=== PATIENT | male | born 1950 | race Caucasian/White ===

== ENCOUNTER 2017-06-15 10:36 | Emergency (ER) | payer MEDICARE ==
[2017-06-15] MEDS ORDERED: NORMAL SALINE 1,000 ML IV ONE (11:47)
--- NOTE | 2017-06-15 11:56 | ERNOTE ---
Abdominal HPI - Narrative Date of Service: 06/15/17 - General Chief Complaint: Abdominal Pain Time Seen by Provider: 06/15/17 11:24 Source: patient - Immun/Allergies/Home Medications Immunizatons: IMMUNIZATION HX Immunizations Up to Date No History of Influenza Vaccine No Hx Pneumococcal Vaccination No Allergies/Adverse Reactions: Allergies Penicillins Allergy (Unverified 10/23/16 17:06) Home Medications: HOME MEDICATIONS Aspirin [Aspirin Enteric Coated] 325 mg PO DAILY 06/15/17 [Last Taken Unknown] - History of Present Illness Narrative: 66-year-old male presents to the emergency room for what he describes as pancreatic pain. Patient states that he has pancreatitis 7 different occasions and this feels very similar. Patient has left upper quadrant pain, states that he had nausea this morning after eating breakfast,. Patient states that this pain is fairly intense. Date (Duration): 06/15/17 Quality: aching Activities at Onset: none Modifying Factors - (Worsens): Present: eating Associated Symptoms: Present: nausea, loss of appetite Prior Abdominal Problems: Present: similar symptoms Review of Systems - Review of Systems Constitutional: Present: no symptoms reported EYE: Present: no symptoms reported ENT: Present: no symptoms reported Respiratory: Present: no symptoms reported Cardiology: Present: no symptoms reported Gastrointestinal/Abdominal: Present: See HPI, nausea, abdominal pain Genitourinary: Present: See HPI Musculoskeletal: Present: no symptoms reported Skin: Present: no symptoms reported Neurological: Present: no symptoms reported Endocrine: Present: no symptoms reported Hematologic/Lymphatic: Present: no symptoms reported Psych: Present: no symptoms reported All Other Systems: All systems neg except as marked - Patient's Past Medical History Patient History - Medical: Other Patient History - Cardiac/Respiratory: No pertinent hx Patient History - Cancer: No Hx of Cancer Patient History - Surgical Procedures: Colonoscopy Patient History - Other: None - Social History Living Situations: home Abuse History: No History of abuse Psych History: No pertinent hx Smoking Status: Never smoker Alcohol Use: none Drug Use: none - Immunizations Immunizations Up to Date: No Hx Pneumococcal Vaccination: No History of Influenza Vaccine: No Physical Exam - Physical Exam General Appearance: Present: wd/wn, alert, mild distress Head Exam: Present: normal inspection, no evidence of injury Eye Exam: Normal inspection: bilateral, PERRL: bilateral, EOMI: bilateral Ears, Nose, Throat: Present: normal ENT inspection, normal pharynx Neck: Present: normal inspection, nontender Respiratory: Present: no respiratory distress, normal breath sounds, no accessory muscle use, chest nontender, lungs clear Cardiovascular/Chest: Present: regular rate, rhythm, no murmur, normal peripheral pulses Gastrointestinal/Abdominal: Present: normal bowel sounds, nondistended, tenderness, distended ED Progress - Results and Orders Patient's Lab Results:: I have reviewed the patient's lab results. - Vital Signs Vital Signs: Vital Signs 06/15/17 06/15/17 11:28 11:35 Temperature 37.0 C 37.0 C Pulse Rate 89 89 Respiratory 16 16 Rate Blood Pressure 145/89 145/89 O2 Sat by Pulse 97 97 Oximetry - X-Ray X-Ray #1 X-Ray: abdomen Interpretation: Reviewed by me X-ray Comments: Reason for Exam: abd pain Radiological Report : [place] [address] NAME: FREYCONNIE Khoa : 1950 MR #: [id number] CC: Ubaldo Ponce [employer] LOC: [facility] DATE: X-RAY REPORT [id number] RAD/Abdomen Flat W/ Upright * Exam Date: 06/15/2017 11:33 Ordering Physician: Ubaldo Ponce HISTORY: abd pain Additional history from technologist: Mid epigastric abdominal pain. TECHNIQUE: AP upright and supine views of the abdomen were obtained, total of 4 images. COMPARISONS: 06/01/2011 FINDINGS: Abdomen Flat W/ Upright *: No subdiaphragmatic free air. Multiple loops of dilated small bowel seen within the midabdomen, with differential air-fluid levels. Stool and bowel gas also seen within the proximal:. Multiple pelvic calcifications likely phleboliths. No definite signs of nephrolithiasis or ureterolithiasis. Osseous structures are intact. Degenerative changes of the thoracolumbar spine and bilateral hips noted. IMPRESSION: 1. Abnormal bowel gas pattern suggestive of potential early or partial small bowel obstruction. 2. Additional comments are as above. Electronically signed by Francheska Cassidy M.D.. Francheska Cassidy MD Dict: 06/15/17 1252 Typed: 06/15/17 1252/ 06/15/17 1300 06/15/17 1303 - CT/Ultrasound CT/Ultrasound Narrative: HISTORY/INDICATION: abd pain Additional history from technologist: Left upper quadrant abdominal pain. Elevated lipase. Previous history of pancreatitis. TECHNIQUE: Contrast enhanced CT images of the abdomen during portal venous phase obtained. Excretory phase images of the abdomen and pelvis were also obtained. Coronal reconstructions were also submitted. Oral contrast material was given. COMPARISON: December 11, 2011 CT Abdomen/Pelvis W/C * ABDOMEN: Lungs: Mild dependent atelectasis present. Calcified granuloma the right lower lobe noted. Uterus portions of the heart demonstrates no definite signs of cardiac enlargement or significant pericardial effusion. Liver: Enlarged, hypodense appearance suggestive of fatty infiltration of the liver. There is a tiny hypodensity in the left hepatic lobe, stable most likely a benign cyst or biliary hamartoma. Gallbladder: Gallbladder appears to be grossly unremarkable although there is some enhancement of the liver parenchyma adjacent to the gallbladder itself. Pancreas: There is diffuse enlargement, and edema of the pancreatic parenchyma with adjacent inflammatory stranding and small amount of confluent edema/fluid in the peripancreatic space/ retroperitoneum, extending along the bilateral anterior pararenal fascia , without definable focal fluid collection or signs of retroperitoneal/peripancreatic gas. The parenchyma demonstrates no definite signs of a focal mass or area of nonenhancement to suggest pancreatic necrosis. There is normal opacification of the splenic vein without thrombosis. Spleen: Calcified splenic granulomas present. Adrenal glands: Unremarkable without focal finding. Kidneys: Normal appearance without focal mass or hydronephrosis. Focal scarring of the lower pole left kidney, stable. Aorta: Mild calcified atherosclerotic plaques noted. Diameter of the infrarenal segment at the level of the inferior mesenteric artery origin is 1.8 cm. Retroperitoneum: No pathologic size lymphadenopathy or mass within the retroperitoneum is seen. Stomach: Partially opacified stomach grossly unremarkable. Small bowel: There is likely secondary duodenal bowel wall thickening , related to underlying pancreatitis. Small bowel loops are otherwise unremarkable without definite signs of intestinal obstruction. Colon: Diverticular outpouchings of the descending and sigmoid colonic segments noted without definite signs of bowel wall thickening and pericolonic inflammatory changes suggest colitis or diverticulitis. Mild stool retention noted within the colonic segments. No evidence for colonic obstruction. Normal caliber appendix seen. Appendix best seen on series 4 image 68-77. Abdominal wall: Fat-containing umbilical and bilateral inguinal hernias noted. No evidence for intraperitoneal free air. PELVIS: Contrast-filled portions of the urinary bladder demonstrates no focal finding. Mild prostate enlargement suggested. No definite signs of pelvic lymphadenopathy or masses are noted. No evidence of free pelvic fluid noted. Bones: Osseous structures are intact without evidence for focal destructive changes. Degenerative changes of the spine noted. IMPRESSION: 1. CT findings compatible with acute pancreatitis as discussed above, without definite signs of complication such as abscess or necrosis. 2. Enhancement of the liver parenchyma around the gallbladder. This could be secondary due to gallbladder pathology. Consider gallbladder ultrasound as needed. 3. Colonic diverticulosis and stool retention noted. No definite signs of acute diverticulitis. 4. Hepatic steatosis. 5. Additional comments and details are as above. Electronically signed by Francheska Cassidy M.D.. Francheska Cassidy MD - Progress/Reassessment Chief Complaint: Abdominal Pain Progress:: Improved Plan - Plan Plan: The patient does not want to be admitted to the hospital for pain control or nausea. Patient states he would like to go home and he'll return if symptoms return. Patient states that he has had pancreatitis 7 times and usually does with just fine at home. Patient understands that he needs to return to the emergency room if he starts running a fever or pain is not able to be controlled her nausea is noted to be controlled. Patient offered a prescription for pain medication and nausea medication and patient refused at this time. Departure - Departure Clinical Impression: Pancreatitis Qualifiers: Chronicity: acute Pancreatitis type: unspecified pancreatitis type Acute pancreatitis complication: unspecified Qualified Code(s): K85.90 - Acute pancreatitis without necrosis or infection, unspecified Disposition: Home Follow Up Needed Condition: Stable Instructions: Low-Fat Diet for Pancreatitis or Gallbladder Conditions, Acute Pancreatitis, [id number] Additional Instructions: Continue any previous home medications. Please return to the emergency room if he develops a fever, nausea or pain increases. Follow up with his primary care in the next 2-3 days. Referrals: Lowell Rahman MD [Primary Care Provider] -
[2017-06-15 12:13] LABS: Hematocrit 49.3 % (42.0-52.0); Hemoglobin 16.8 gm/dL (13.5-18.0); Mean Cell Volume 92.3 fl (78-100); Mean Corpuscular Hemoglobin 31.5 pg (27-31); Mean Corpuscular Hgb Conc 34.1 g/dl (32-36); Mean Platelet Volume 10.2 fl (6.0-9.5); Neutrophil # 8.2 K/mm3 (1.3-6.0); Platelet Count 202 K/mm3 (150-450); Red Blood Count 5.34 M/mm3 (4.7-6.0); Red Cell Distribution Width 12.6 % (11.5-14.0); White Blood Count 10.8 K/mm3 (4.0-10.5)
[2017-06-15 12:20] LABS: Albumin * 3.9 gm/dl (3.4-5.0); Anion Gap 14.8 mmol/L (6.8-13.8); BUN/Creatinine Ratio 19.6 (9.0-21.6); Bilirubin, Total 0.5 mg/dL (0.0-1.1); Ca. Corrected For Albumin 9.3 mg/dL (8.4-10.2); Calcium * 9.5 mg/dL (7.9-10.9); Carbon Dioxide 24.2 mmol/L (24-32.6); Total Protein 8.1 gm/dL (6.2-8.2)
[2017-06-15 12:24] LABS: Troponin I 0.069 ng/ml (0.00-0.10)
[2017-06-15] MEDS ORDERED: DIATRIZOATE MEGLUMINE, SODIUM 30 ML BTL PO ONE (13:35)
[2017-06-15] MEDS ORDERED: DIATRIZOATE MEGLUMINE, SODIUM 30 ML BTL ONE (13:37)
[2017-06-15 20:30] VITALS: BP 144/83
== END 2017-06-15 16:20 | disposition home or self-care (01) ==
LOC: ER 10:36
DX: K85.90 Acute pancreatitis without necrosis or infection, unspecified (principal)

== ENCOUNTER 2020-08-16 16:41 | Inpatient (IN) ==
[2020-08-16] MEDS ORDERED: NORMAL SALINE 1,000 ML IV ONE (17:13)
[2020-08-16] MEDS ORDERED: MORPHINE SULFATE 4 MG/ML SYRG IV ONE ×3 (17:14→18:43)
[2020-08-16] MEDS ORDERED: ONDANSETRON HCL/PF 2 MG/ML VIAL IV ONE ×2 (17:14→18:42)
[2020-08-16] MEDS ORDERED: diphenhydrAMINE HCL 50 MG/ML VIAL IV ONE (17:14)
--- NOTE | 2020-08-16 17:30 | ERNOTE ---
<Tremaine Rich - Last Filed: 08/16/20 19:48> Abdominal HPI - Narrative Date of Service: 08/16/20 - General Chief Complaint: Abdominal Pain Time Seen by Provider: 08/16/20 16:55 Source: patient Exam Limitations: no limitations - Immun/Allergies/Home Medications Immunizatons: IMMUNIZATION HX Immunizations Up to Date No History of Influenza Vaccine No Hx Pneumococcal Vaccination No Allergies/Adverse Reactions: Allergies Penicillins Allergy (Intermediate, Verified 08/16/20 16:49) rash Home Medications: HOME MEDICATIONS Aspirin [Aspirin Enteric Coated] 325 mg PO DAILY 06/15/17 [Last Taken 03/19/19] magnesium 200 mg tablet 200 mg PO BID 03/12/19 [Last Taken 03/19/19] potassium 99 mg tablet 297 mg PO DAILY tab 03/12/19 [Last Taken 03/19/19] saw palmetto 500 mg capsule 1,000 mg PO TID cap 03/12/19 [Last Taken 03/19/19] lisinopril 20 mg tablet 20 mg PO DAILY #30 tab 07/08/20 [Last Taken Unknown] fluticasone propionate 50 mcg/actuation nasal spray,suspension 2 spray INTRANASAL DAILY #15.8 g 08/12/20 [Last Taken Unknown] - History of Present Illness Narrative: Patient presents to the ED for upper abdominal pain. He had eaten at noon-time. Pain started 4pm. Severe and mid-epigastric. Feels like prior pancreatitis pain that he has had. Vomited after the pain started. Also one episode of non-bloody diarrhea. Pain severe. Waxing and waning, all epigastric and across upper abdomen. No CP or SOB. No testicular or scrotal pain or symptoms. Timing: constant, other - fluctuating intensity. Quality: severe, sharpness Activities at Onset: none Modifying Factors - (Improves): Present: other - nothing Modifying Factors - (Worsens): Present: other - nothing Associated Symptoms: Present: nausea, vomiting. Absent: headache, chest pain, diarrhea-gross blood, shortness of breath Prior Abdominal Problems: Present: similar symptoms Prior Treatment: Absent: recently hospitalized Review of Systems - Review of Systems Constitutional: Absent: fever EYE: Present: no symptoms reported ENT: Absent: sore throat Respiratory: Absent: shortness of breath Cardiology: Absent: chest pain Gastrointestinal/Abdominal: Present: See HPI Genitourinary: Absent: dysuria Neurological: Absent: weakness All Other Systems: All systems neg except as marked Medical History (Last Reviewed 08/16/20 @ 17:28 by Tremaine Rich MD) Cellulitis, scrotum (Chronic) Onset Date: 03/03/15 Gout (Chronic) Onset Date: Unknown 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 Highest education level completed: high school graduate Service: Yes branch: [employer] Tobacco: Smoking Status: Never smoker Alcohol: alcohol intake: current Alcohol type: beer, wine alcohol intake frequency: holiday/special occasion details: rare one or two beers a year Substance Use: substance use type: does not use Dietary Habits: caffeine: Yes Type: coffee Physical Exam - Physical Exam General Appearance: Present: alert, other - mild distress fue to pain Head Exam: Present: normal inspection, no evidence of injury Eye Exam: Normal inspection: bilateral, PERRL: bilateral Ears, Nose, Throat: Present: normal ENT inspection Neck: Present: normal inspection Respiratory: Present: no respiratory distress, normal breath sounds, no accessory muscle use, lungs clear Cardiovascular/Chest: Present: regular rate, rhythm, normal peripheral pulses Gastrointestinal/Abdominal: Present: normal bowel sounds, other - diffuse upper abdominal tenderness. Mostly mid-epigastric, no clear peritoneal signs, no rebound Back Exam: Absent: CVA tenderness (R), CVA tenderness (L) Extremity Exam: Present: normal range of motion Neurological Exam: Present: alert, no motor/sensory deficits Skin Exam: Present: normal color, warm/dry Progress - Results and Orders Patient's Lab Results:: I have reviewed the patient's lab results. - Vital Signs Patient's Vital Signs:: I have reviewed the patient's vital signs. Vital Signs: Vital Signs 08/16/20 16:46 Temperature 35.0 C L Pulse Rate 75 Respiratory Rate 20 Blood Pressure 132/75 O2 Sat by Pulse Oximetry 97 - EKG EKG #1 EKG: NSR EKG read: Interp. by me EKG Comments: NSR rate 75. Non-specific ST/T wave changes, no STEMI noted. - Progress/Reassessment Chief Complaint: Abdominal Pain - Transfer of Care Physician Sign Out: Tremaine Rich Receiving Physician: Adriana Arauz Pending Results: CT/MRI results Departure Clinical Impression: Abdominal pain Qualifiers: Abdominal location: upper abdomen, unspecified Qualified Code(s): R10.10 - Upper abdominal pain, unspecified Pancreatitis Qualifiers: Chronicity: acute Pancreatitis type: unspecified pancreatitis type Acute pancreatitis complication: no infection or necrosis Qualified Code(s): K85.90 - Acute pancreatitis without necrosis or infection, unspecified - Departure Disposition: Short Term Hospital Inpatient Condition: Stable <Adriana Arauz - Last Filed: 08/16/20 23:13> Abdominal HPI - Immun/Allergies/Home Medications Immunizatons: IMMUNIZATION HX Immunizations Up to Date No History of Influenza Vaccine No Hx Pneumococcal Vaccination No Medical History (Last Reviewed 08/16/20 @ 17:28 by Tremaine Rich MD) Cellulitis, scrotum (Chronic) Onset Date: 03/03/15 Gout (Chronic) Onset Date: Unknown 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 Results and Orders: Laboratory Results - last 24 hr 08/16/20 08/16/20 08/16/20 17:31 17:31 18:40 WBC 19.8 H RBC 4.97 Hgb 15.7 Hct 48.3 MCV 97.2 MCH 31.6 H MCHC 32.5 RDW 12.3 Plt Count 299 MPV 9.3 Neutrophils % (Manual) 70 Band Neuts % (Manual) 5 H Lymphocytes % (Manual) 6 L Monocytes % (Manual) 11 H Eosinophils % (Manual) 3 Basophils % (Manual) 0 Neutrophils # (Manual) 13.9 H Lymphocytes # (Manual) 1.2 L Monocytes # (Manual) 2.2 H Eosinophils # (Manual) 0.4 Basophils # (Manual) 0.2 H Atypic/Reactive Lymphs 5 H Platelet Estimate Normal RBC Morphology Normal Sodium 139 Plasma Sodium 139 Potassium 4.0 Chloride 101 Carbon Dioxide 24.7 Anion Gap 17.3 H BUN 24 H Creatinine 1.38 Est GFR (Non-Af Amer) 54 L D BUN/Creatinine Ratio 17.4 Random Glucose 130 H Calcium 10.5 Calcium Adj for Albumin 10.2 Total Bilirubin 0.4 AST 28 ALT 35 Alkaline Phosphatase 54 Lactate Dehydrogenase 173 Troponin I 0.075 Total Protein 7.8 Albumin 4.0 Amylase 4430 H Lipase 19238 H Urine Color Urine Appearance Urine pH Ur Specific [place] Urine Protein Urine Glucose (UA) Urine Ketones Urine Blood Urine Nitrate Urine Bilirubin Urine Urobilinogen Ur Leukocyte Esterase Urine RBC Urine WBC Ur Epithelial Cells Urine Bacteria Urine Culture Comments 08/16/20 Unknown WBC RBC Hgb Hct MCV MCH MCHC RDW Plt Count MPV Neutrophils % (Manual) Band Neuts % (Manual) Lymphocytes % (Manual) Monocytes % (Manual) Eosinophils % (Manual) Basophils % (Manual) Neutrophils # (Manual) Lymphocytes # (Manual) Monocytes # (Manual) Eosinophils # (Manual) Basophils # (Manual) Atypic/Reactive Lymphs Platelet Estimate RBC Morphology Sodium Plasma Sodium Potassium Chloride Carbon Dioxide Anion Gap BUN Creatinine Est GFR (Non-Af Amer) BUN/Creatinine Ratio Random Glucose Calcium Calcium Adj for Albumin Total Bilirubin AST ALT Alkaline Phosphatase Lactate Dehydrogenase Troponin I Total Protein Albumin Amylase Lipase Urine Color Yellow Urine Appearance Clear Urine pH 5.5 Ur Specific [place] 1.020 Urine Protein Negative Urine Glucose (UA) Negative Urine Ketones Negative Urine Blood Negative Urine Nitrate Negative Urine Bilirubin Negative Urine Urobilinogen Normal Ur Leukocyte Esterase Negative Urine RBC None seen Urine WBC None seen Ur Epithelial Cells None seen Urine Bacteria None seen Urine Culture Comments No culture indicated - Vital Signs Patient's Vital Signs:: I have reviewed the patient's vital signs. Vital Signs: Vital Signs 08/16/20 16:46 08/16/20 17:45 08/16/20 18:00 Temperature 35.0 C L Pulse Rate 75 80 77 Respiratory Rate 20 16 14 Blood Pressure 132/75 123/55 121/50 O2 Sat by Pulse Oximetry 97 93 93 08/16/20 18:29 08/16/20 18:58 08/16/20 19:13 Temperature Pulse Rate 79 84 86 Respiratory Rate 16 13 20 Blood Pressure 175/79 H 167/82 H 156/78 H O2 Sat by Pulse Oximetry 98 97 88 L 08/16/20 19:44 08/16/20 20:52 Temperature Pulse Rate 92 83 Respiratory Rate 16 18 Blood Pressure 117/95 H 143/81 O2 Sat by Pulse Oximetry 94 93 - CT/Ultrasound CT/Ultrasound Narrative: [facility] [address] [place] [address] NAME: Lamine Marshall Jr. : 1950 MR #: [id number] CC: Tremaine Rich MD LOC: ER ADM DATE: DIS DATE: X-RAY REPORT ~[id number] CT/CT Abdomen/Pelvis W/C *~ Exam Date: 08/16/2020 21:02 Ordering Physician: Tremaine Rich MD CT abdomen and pelvis with contrast on 08/16/2020 COMPARISON: 06/15/2017 HISTORY: Severe epigastric abdominal pain. TECHNIQUE: 5 mm axial images. Oral and intravenous contrast. Sagittal and coronal reformats. Individualized dose optimization technique was used for the performed procedure including automated exposure control, adjustment of the mA and/or kV according to patient size and/or the iterative reconstruction technique. FINDINGS: Previous examination describes evidence of pancreatitis without complicating features and other incidental findings. Currently, the lung bases are free of worrisome consolidations and nodules. Minor dependent atelectasis noted as well as a calcified granuloma at the right lung base. No pericardial thickening or pericardial effusion. No pleural effusion. Diffuse fatty infiltration of the liver. There is a small amount of ascites between the liver and diaphragm. No CT apparent gallstones. No biliary duct dilatation. Mildly edematous pancreas and moderate soft tissue changes about the pancreas some of which were present previously and could represent some chronic peripancreatic scarring but also extension suggesting components of acute pancreatitis. Inflammatory changes extend to the Gerota's fascia both left and right-sided as well as about the C-loop of the duodenum and towards the transverse music colon. No evidence for abscess, discrete phlegmon nor p seudocyst formation. Normal spleen size. Scattered calcified splenic granuloma. Unremarkable adrenal glands. Unremarkable kidneys. No hydronephrosis or hydroureter. Normal aortic dimensions. No significant retroperitoneal lymphadenopathy. No discrete gastric abnormality. Thickening about the C-loop of the duodenum may be secondary to pancreatitis as opposed to intrinsic inflammation. No obstr uctive changes. A few scattered colonic diverticula in the upper:. The inflammatory changes about the colon felt to be related to the pancreas. Small umbilical hernia containing only fat. CT PELVIS: Mild atherosclerotic change in distal aorta and iliac vessels. No significant pelvic lymphadenopathy. A few small external iliac nodes identified. Moderate to marked sigmoid diverticulosis without active inflammation. No evidence for appendicitis. The bladder wall is mildly thickened but uniformly so. The pelvic ureters are unremarkable. Prostate mildly enlarged. Seminal vesicles unremarkable. No inguinal hernia. Bone windows demonstrate moderate degenerative changes especially at L4-5 with some discogenic sclerosis. IMPRESSION: Moderate inflammation about the pancreas consistent with acute pancreatitis. There may be a component of chronic adebayo-pancreatic scarring as well but new changes are seen extending about the C-loop of the duodenum, along the anterior limbs of Gerota's fascia bilaterally, right greater than left and in the transverse mesocolon. No evidence for phlegmon, abscess or pseudocyst formation. Electronically signed by Mela Carvajal MD. Mela Carvajal MD Dict: 08/16/202134 Typed: 08/16/202134/ 08/16/202144 - Progress/Reassessment Progress Note-Subjective: 08/16/20 22:[address] scan results and all of the patient's labs, along with visiting with the patient, I called Dr. Hsu to arrange for the patient to be admitted for further evaluation and treatment. She and I reviewed his presentation, his labs and his CT scan. She agreed to admit him for further evaluation and treatment of his acute pancreatitis. 08/16/20 23:08 Orders placed for admission and mouth swabs. Patient to go to the floor. 08/16/20 23:13 Order placed for morphine for pain and ondansetron for nausea/vomiting. - Transfer of Care Expected Disposition: Admit
[2020-08-16 17:39] LABS: Hematocrit 48.3 % (42.0-52.0); Hemoglobin 15.7 gm/dL (13.5-18.0); Mean Cell Volume 97.2 fl (78-100); Mean Corpuscular Hemoglobin 31.6 pg (27-31); Mean Corpuscular Hgb Conc 32.5 g/dl (32-36); Mean Platelet Volume 9.3 fl (8-11.3); Platelet Count 299 K/mm3 (150-450); Red Blood Count 4.97 M/mm3 (4.7-6.0); Red Cell Distribution Width 12.3 % (11.5-14.0); White Blood Count 19.8 K/mm3 (4.0-10.5)
[2020-08-16 17:45] LABS: Total Cells Counted 100
[2020-08-16 18:00] LABS: Anion Gap 17.3 mmol/L (6.8-13.8); BUN/Creatinine Ratio 17.4 (9.0-21.6); Bilirubin, Total 0.4 mg/dL (0.0-1.1); Ca. Corrected For Albumin 10.2 mg/dL (8.4-10.2); Calcium * 10.5 mg/dL (7.9-10.9); Carbon Dioxide 24.7 mmol/L (24-32.6); Total Protein 7.8 gm/dL (6.2-8.2)
[2020-08-16 18:01] LABS: Atypical (Reactive) Lymph 5 % (0-2); Band 5 % (0-2.0); Lymphocyte 6 % (20-51); Monocyte 11 % (0-9); Neutrophil 70 % (42-75); Neutrophil # 13.9 K/mm3 (1.3-6.0)
[2020-08-16 18:02] LABS: Troponin I 0.075 ng/mL (0.00-0.10)
[2020-08-16 18:03] LABS: Platelet Estimate Normal (NORMAL); RBC Morphology Normal (NORMAL)
[2020-08-16 18:05] LABS: Basophil 0 % (0-1); Eosinophil 3 % (0-3)
[2020-08-16] MEDS ORDERED: DIATRIZOATE MEGLUMINE, SODIUM 30 ML BTL PO ONE (18:40)
[2020-08-16] MEDS ORDERED: MORPHINE SULFATE 4 MG/ML SYRG ONE (20:06)
[2020-08-16 22:12] LABS: Urine Appearance Clear (CLEAR); Urine Bacteria None Seen; Urine Bilirubin Negative (NEGATIVE); Urine Blood Negative /ul (NEGATIVE); Urine Color Yellow; Urine Ketone Negative (NEGATIVE); Urine Nitrite Negative (NEGATIVE); Urine Protein Negative (NEGATIVE); Urine RBC None Seen /hpf (0-5); Urine Urobilinogen Normal (NORMAL); Urine WBC None Seen /hpf (0-5); Urine pH 5.5 pH (5.0-7.0)
[2020-08-16] MEDS ORDERED: HYDROmorphone HCL 1 MG/ML DISP.SYRIN IV ONE (22:12)
[2020-08-16] MEDS: NORMAL SALINE 1,000 ML IV PRN (22:35)
[2020-08-16] MEDS ORDERED: ONDANSETRON HCL/PF 2 MG/ML VIAL IV PRN (23:11)
[2020-08-17] MEDS: MORPHINE SULFATE 4 MG/ML SYRG IV PRN ×2 (03:29→07:55)
--- NOTE | 2020-08-17 08:32 | HP ---
Chief Complaint - Chief Complaint Date of Service: 08/17/20 Time of Service: 10:55 Chief Complaint: Severe epigastric abdominal pain History of Present Illness: Patient presented to the ED last night for severe upper abdominal pain. He had eaten at noon-time the day of presentation. Pain started 4pm yesterday. Severe and mid-epigastric. [place] like prior pancreatitis pain that he has had. Is persistent this morning. Vomited after the pain started. Also one episode of non-bloody diarrhea. Pain still waxing and waning, all epigastric and across upper abdomen. It was 9/10 intensity in the ER, but 6/9 No CP or SOB. No testicular or scrotal pain or symptoms. constant fluctuating intensity. sharp nothing improves or worsens the pain. Still has nausea no vomitins. Complains of hiccoughs which really make his pain worse each time. No fever, chills, sweats, dyspnea, diarrhea, hematochezia or hematemesis. He has had multiple episodes of prior idiopathic acute pancreatitis. Medical History (Last Reviewed 08/17/20 @ 08:28 by Lowell Rahman MD) Cellulitis, scrotum (Chronic) Onset Date: 03/03/15 Gout (Chronic) Onset Date: Unknown Guillain Carrion syndrome (Chronic) Onset Date: Unknown Pancreatitis (Chronic) Onset Date: 2013 Knee pain, left (Chronic) Onset Date: Unknown Medial meniscus tear (Chronic) Left knee pain (Chronic) Pancreatitis (Chronic) Surgical History: Surgical History (Last Reviewed 08/17/20 @ 08:28 by Lowell Rahman MD) S/P arthroscopic knee surgery (Resolved) Onset Date: ~03/20/19 Left knee arthroscopy with partial medial meniscectomy Dr. 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 Highest education level completed: high school graduate Service: Yes branch: [employer] Tobacco: Smoking Status: Never smoker Alcohol: alcohol intake: current Alcohol type: beer, wine alcohol intake frequency: holiday/special occasion details: rare one or two beers a year Substance Use: substance use type: does not use Dietary Habits: caffeine: Yes Type: coffee Review Of Systems (GEN) - Review of Systems Generalized/Overall Review: Absent: Chills, Fever, Diaphoresis EENTM: Present: No Symptoms Reported Respiratory: Present: No Symptoms Reported Cardiac: Present: No Symptoms Reported Abdominal: Present: Nausea, Vomiting, Abdominal Pain. Absent: Hematemesis, Constipation, Diarrhea, Melena, Bright blood from rectum Genitourinary: Present: No Symptoms Reported Musculoskeletal: Present: No Symptoms Reported Neurological: Present: No Symptoms Reported Skin: Present: No Symptoms Reported Endocrine: Present: No Symptoms Reported Misc: All systems neg except as marked Immunizations: IMMUNIZATION HX Immunizations Up to Date No History of Influenza Vaccine No Hx Pneumococcal Vaccination No Allergies/Adverse Reactions: Allergies Allergy/AdvReac Type Severity Reaction Status Date / Time Penicillins Allergy Intermediate rash Verified 08/16/20 16:49 Home Medications: HOME MEDICATIONS Aspirin [Aspirin Enteric Coated] 325 mg PO DAILY 06/15/17 [Last Taken 03/19/19] magnesium 200 mg tablet 200 mg PO BID 03/12/19 [Last Taken 03/19/19] potassium 99 mg tablet 297 mg PO DAILY tab 03/12/19 [Last Taken 03/19/19] saw palmetto 500 mg capsule 1,000 mg PO TID cap 03/12/19 [Last Taken 03/19/19] lisinopril 20 mg tablet 20 mg PO DAILY #30 tab 07/08/20 [Last Taken Unknown] fluticasone propionate 50 mcg/actuation nasal spray,suspension 2 spray INTRANASAL DAILY #15.8 g 08/12/20 [Last Taken Unknown] Exam - Exam Vital Signs: Vital Signs - Last Taken Temp 37.9 C 08/17/20 07:17 Pulse 89 08/17/20 07:17 Resp 20 08/17/20 07:17 BP 182/71 H 08/17/20 07:17 Pulse Ox 91 L 08/17/20 07:17 Constitutional: Present: Alert, Oriented x3, Cooperative, Well developed, Well nourished, Other - looks uncomfortable due to pain. ENT Exam: Present: normal ENT inspection, hearing grossly normal Eye Exam: bilateral eye: normal inspection, PERRL, EOMI Neck: Present: non-tender, normal inspection. Absent: lymphadenopathy (R), lymphadenopathy (L), thyromegaly Back Exam: Present: normal inspection, no CVA tenderness, no vertebral tenderness Breasts: Present: Other - male Respiratory: Present: lungs clear, no respiratory distress Cardiovascular/Chest: Present: normal peripheral pulses, regular rate, rhythm, no chest tenderness, no edema, no JVD, no murmur Peripheral Pulses: carotid (R): 1+, carotid (L): 1+ Abdomen: Present: Normal bowel sounds, soft, no rebound tenderness, no hepatospenomegaly, no masses, obese, tender - especially across the upper abdomen. Absent: rigidity /Rectal: Present: Exam deferred Extremity: Present: normal range of motion, non-tender, other - trace edema both lower legs. Skin Exam: Present: normal color, warm/dry, no cyanosis Lymphatic: Present: no adenopathy Neurologic: Present: normal mood/affect. Absent: abnormal gait Appearance: Present: appropriate appearance, appropriate insight, neat, no memory impairment Eye contact: Present: cooperative, good eye contact, normal speech Diagnostic Studies: Abnormal Lab Results 08/16/20 08/16/20 08/16/20 Range/Units 17:31 17:31 18:40 WBC 19.8 H (4.0-10.5) K/mm3 MCH 31.6 H (27-31) pg Band Neuts % (Manual) 5 H (0-2.0) % Lymphocytes % (Manual) 6 L (20-51) % Monocytes % (Manual) 11 H (0-9) % Neutrophils # (Manual) 13.9 H (1.3-6.0) K/mm3 Lymphocytes # (Manual) 1.2 L (1.5-3.5) k/mm3 Monocytes # (Manual) 2.2 H (0.0-1.0) k/mm3 Basophils # (Manual) 0.2 H (0.0-0.1) k/mm3 Atypic/Reactive Lymphs 5 H (0-2) % Anion Gap 17.3 H (6.8-13.8) mmol/L BUN 24 H (6-23) mg/dL Est GFR (Non-Af Amer) 54 L D (60-130) mL/min Random Glucose 130 H (70-110) mg/dL Amylase 4430 H (25-115) U/L Lipase 87567 H (73-393) U/L Laboratory Results WBC 19.8 K/mm3 (4.0-10.5) H 08/16/20 17: RBC 4.97 M/mm3 (4.7-6.0) 08/16/20 17: Hgb 15.7 gm/dL (13.5-18.0) 08/16/20: Hct 48.3 % (42.0-52.0) 08/16/20: MCV 97.2 fl (78-100) 08/16/20: MCH 31.6 pg (27-31) H 08/16/20: MCHC 32.5 g/dl (32-36) 08/16/20: RDW 12.3 % (11.5-14.0) 08/16/20: Plt Count 299 K/mm3 (150-450) 08/16/20: MPV 9.3 fl (8-11.3) 08/16/20: Neutrophils % (Manual) 70 % (42-75) 08/16/20: Band Neuts % (Manual) 5 % (0-2.0) H 08/16/20: Lymphocytes % (Manual) 6 % (20-51) L 08/16/20: Monocytes % (Manual) 11 % (0-9) H 08/16/20: Eosinophils % (Manual) 3 % (0-3) 08/16/20: Basophils % (Manual) 0 % (0-1) 08/16/20: Neutrophils # (Manual) 13.9 K/mm3 (1.3-6.0) H 08/16/20 17: Lymphocytes # (Manual) 1.2 k/mm3 (1.5-3.5) L 08/16/20: Monocytes # (Manual) 2.2 k/mm3 (0.0-1.0) H 08/16/20 17:31 Eosinophils # (Manual) 0.4 k/mm3 (0.0-0.7) 08/16/20 17:31 Basophils # (Manual) 0.2 k/mm3 (0.0-0.1) H 08/16/20 17:31 Atypic/Reactive Lymphs 5 % (0-2) H 08/16/20 17:31 Platelet Estimate Normal (NORMAL) 08/16/20 17: RBC Morphology Normal (NORMAL) 08/16/20 17:31 Sodium 139 mmol/L (132-142) 08/16/20 17:31 Plasma Sodium 139 mmol/L (130-142) 08/16/20 17: Potassium 4.0 mmol/L (3.4-4.6) 08/16/20: Chloride 101 mmol/L (97-106) 08/16/20 17: Carbon Dioxide 24.7 mmol/L (24-32.6) 08/16/20 17: Anion Gap 17.3 mmol/L (6.8-13.8) H 08/16/20 17: BUN 24 mg/dL (6-23) H 08/16/20 17: Creatinine 1.38 mg/dL (0.4-1.4) 08/16/20 17: Est GFR (Non-Af Amer) 54 mL/min (60-130) L D 08/16/20 17: BUN/Creatinine Ratio 17.4 (9.0-21.6) 08/16/20 17: Random Glucose 130 mg/dL (70-110) H 08/16/20 17: Calcium 10.5 mg/dL (7.9-10.9) 08/16/20 17: Calcium Adj for Albumin 10.2 mg/dL (8.4-10.2) 08/16/20 17: Total Bilirubin 0.4 mg/dL (0.0-1.1) 08/16/20 17: AST 28 U/L (0-48) 08/16/20 17:31 ALT 35 U/L (19-67) 08/16/20 17:31 Alkaline Phosphatase 54 U/L (50-170) 08/16/20 17: Lactate Dehydrogenase 173 U/L (85-227) 08/16/20 17:31 Troponin I 0.075 ng/mL (0.00-0.10) 08/16/20 17:31 Total Protein 7.8 gm/dL (6.2-8.2) 08/16/20 17:31 Albumin 4.0 gm/dl (3.4-5.0) 08/16/20 17:31 Amylase 4430 U/L (25-115) H 08/16/20 18:40 Lipase 94566 U/L (73-393) H 08/16/20 17:31 Urine Color Yellow 08/16/20 Unknown Urine Appearance Clear (CLEAR) 08/16/20 Unknown Urine pH 5.5 pH (5.0-7.0) 08/16/20 Unknown Ur Specific [place] 1.020 SP.GR. (1.005-1.030) 08/16/20 Unknown Urine Protein Negative mg/dL (NEGATIVE) 08/16/20 Unknown Urine Glucose (UA) Negative mg/dL (NEGATIVE) 08/16/20 Unknown Urine Ketones Negative mg/dL (NEGATIVE) 08/16/20 Unknown Urine Blood Negative /ul (NEGATIVE) 08/16/20 Unknown Urine Nitrate Negative (NEGATIVE) 08/16/20 Unknown Urine Bilirubin Negative mg/dl (NEGATIVE) 08/16/20 Unknown Urine Urobilinogen Normal EU/dl (NORMAL) 08/16/20 Unknown Ur Leukocyte Esterase Negative /ul (NEGATIVE) 08/16/20 Unknown Urine RBC None seen /hpf (0-5) 08/16/20 Unknown Urine WBC None seen /hpf (0-5) 08/16/20 Unknown Ur Epithelial Cells None seen /hpf (0-5) 08/16/20 Unknown Urine Bacteria None seen (NONE) 08/16/20 Unknown Urine Culture Comments No culture indicated 08/16/20 Unknown Assessment/Plan - Assessment/Plan (1) Acute pancreatitis Assessment: NPO, IV fluids, monitor labs, pain meds, nausea meds. Problem: Acute (2) Chronic recurrent pancreatitis Problem: Chronic (3) Adult BMI 35.0-35.9 kg/sq m Problem: Chronic (4) Benign essential hypertension Assessment: BP med with sips water Problem: Chronic (5) Chronic rhinitis Problem: Chronic
[2020-08-17 08:38] LABS: Hemoglobin 16.4 gm/dL (13.5-18.0); Mean Cell Volume 95.9 fl (78-100); Mean Corpuscular Hemoglobin 32.1 pg (27-31); Mean Corpuscular Hgb Conc 33.5 g/dl (32-36); Mean Platelet Volume 9.1 fl (8-11.3); Neutrophil # 16.3 K/mm3 (1.3-6.0); Neutrophil % 88.5 % (42-75.0); Platelet Count 284 K/mm3 (150-450); Red Blood Count 5.11 M/mm3 (4.7-6.0); Red Cell Distribution Width 12.3 % (11.5-14.0); White Blood Count 18.4 K/mm3 (4.0-10.5)
[2020-08-17] MEDS: NORMAL SALINE 1,000 ML IV PRN ×2 (08:50→19:57)
[2020-08-17] MEDS: HYDROmorphone HCL 1 MG/ML DISP.SYRIN IV PRN ×3 (08:56→18:45)
[2020-08-17 08:58] LABS: Albumin * 3.4 gm/dl (3.4-5.0); Anion Gap 14.1 mmol/L (6.8-13.8); BUN/Creatinine Ratio 19.7 (9.0-21.6); Bilirubin, Total 0.5 mg/dL (0.0-1.1); Ca. Corrected For Albumin 8.9 mg/dL (8.4-10.2); Calcium * 8.7 mg/dL (7.9-10.9); Carbon Dioxide 24.4 mmol/L (24-32.6); Potassium 4.5 mmol/L (3.4-4.6); Total Protein 7.3 gm/dL (6.2-8.2)
[2020-08-17] MEDS: LISINOPRIL 10 MG TABLET PO SCH (08:59)
[2020-08-17] MEDS: FLUTICASONE PROPIONATE 120 SPRAY INHALER NS SCH (09:01)
[2020-08-17] MEDS: ENOXAPARIN SODIUM 40 MG/0.4 ML SYRG SC SCH (09:05)
[2020-08-17] MEDS ORDERED: HYDROmorphone HCL 1 MG/ML DISP.SYRIN IV PRN (10:25)
[2020-08-17] MEDS: CHLORPROMAZINE HCL IV SCH ×3 (11:30→22:16)
[2020-08-17] MEDS: NORMAL SALINE IV SCH ×3 (11:30→22:16)
[2020-08-18] MEDS: HYDROmorphone HCL 1 MG/ML DISP.SYRIN IV PRN ×4 (02:28→21:48)
[2020-08-18] MEDS: NORMAL SALINE IV SCH (04:15)
[2020-08-18] MEDS: CHLORPROMAZINE HCL IV SCH (04:15)
[2020-08-18 06:37] LABS: Hemoglobin 13.7 gm/dL (13.5-18.0); Mean Cell Volume 99.1 fl (78-100); Mean Corpuscular Hemoglobin 31.6 pg (27-31); Mean Corpuscular Hgb Conc 31.9 g/dl (32-36); Mean Platelet Volume 9.7 fl (8-11.3); Platelet Count 214 K/mm3 (150-450); Red Blood Count 4.34 M/mm3 (4.7-6.0); Red Cell Distribution Width 13.1 % (11.5-14.0)
[2020-08-18 06:50] LABS: Albumin * 2.8 gm/dl (3.4-5.0); Anion Gap 13.1 mmol/L (6.8-13.8); BUN/Creatinine Ratio 21.6 (9.0-21.6); Bilirubin, Total 0.5 mg/dL (0.0-1.1); Ca. Corrected For Albumin 8.8 mg/dL (8.4-10.2); Calcium * 8.2 mg/dL (7.9-10.9); Carbon Dioxide 25.4 mmol/L (24-32.6); Potassium 4.5 mmol/L (3.4-4.6); Total Protein 6.4 gm/dL (6.2-8.2)
[2020-08-18] MEDS: NORMAL SALINE 1,000 ML IV PRN ×2 (07:02→21:49)
[2020-08-18 07:08] LABS: Total Cells Counted 100
[2020-08-18 07:16] LABS: Lymphocyte 5 % (20-51); Monocyte 14 % (0-9); Neutrophil 81 % (42-75); Neutrophil # 16.2 K/mm3 (1.3-6.0); Platelet Estimate Normal (NORMAL)
[2020-08-18 07:17] LABS: RBC Morphology Normal (NORMAL)
--- NOTE | 2020-08-18 07:28 | PN ---
Subjective - Date and Time Seen Date: 08/18/20 Time: 06:50 Subjective Narrative: Patient presented the night before last for severe upper abdominal pain. Pain started 4pm the day of admission. It is less severe this morning. Pain still waxing and waning, epigastric and across upper abdomen. Pain medication works well. Hiccoughs are mostly gone. Nausea improved, but not gone. Sips of water since yesterday are tolerated well. Walking well. Urinating well. No bowel mo vement. Labs show a slightly elevated wbc count above yesterday's. Chemistries are ok and lipase continues to lessen. Objective - Review of Systems Generalized/Overall Review: Denies: Chills, Fever, Diaphoresis EENTM: Reports: No Symptoms Reported Respiratory: Reports: No Symptoms Reported Cardiac: Reports: No Symptoms Reported Abdominal: Reports: Nausea, Abdominal Pain Genitourinary Symptoms: Reports: No Symptoms Reported Musculoskeletal Complaints: Reports: No Symptoms Reported Neurological: Reports: No Symptoms Reported Skin: Reports: No Symptoms Reported Endocrine: Reports: No Symptoms Reported Misc: All systems neg except as marked - Vitals Vitals: Last Vital Signs Temp 37.5 C 08/18/20 06:00 Pulse 112 H 08/18/20 06:00 Resp 20 08/18/20 06:00 BP 156/74 H 08/18/20 06:00 Pulse Ox 94 08/18/20 06:00 - Abnormal Lab Findings Abnormal Lab Findings: Abnormal Lab Results 08/17/20 08/17/20 08/18/20 Range/Units 08:36 08:36 06:31 WBC 18.4 H 20.0 H (4.0-10.5) K/mm3 RBC 4.34 L (4.7-6.0) M/mm3 MCH 32.1 H 31.6 H (27-31) pg MCHC 31.9 L (32-36) g/dl Immature Gran % (Auto) 0.50 H 1.40 H (0.001-0.429) % Immature Gran # (Auto) 0.09 H 0.28 H (0.000-0.0310) K/mm3 Neutrophils % 88.5 H 85.0 H (42-75.0) % Lymphocytes % 3.3 L 4.2 L (20-51) % Monocytes % 9.1 H (0.0-9) % Neutrophils # 16.3 H 17.0 H (1.3-6.0) K/mm3 Lymphocytes # 0.61 L 0.83 L (1.5-3.5) k/mm3 Monocytes # 1.4 H 1.8 H (0.0-1.0) k/mm3 Anion Gap 14.1 H (6.8-13.8) mmol/L BUN 25 H (6-23) mg/dL Creatinine (0.4-1.4) mg/dL Est GFR (Non-Af Amer) (60-130) mL/min Random Glucose 165 H (70-110) mg/dL Alkaline Phosphatase (50-170) U/L Albumin (3.4-5.0) gm/dl Lipase 6185 H (73-393) U/L 08/18/20 Range/Units 06:31 WBC (4.0-10.5) K/mm3 RBC (4.7-6.0) M/mm3 MCH (27-31) pg MCHC (32-36) g/dl Immature Gran % (Auto) (0.001-0.429) % Immature Gran # (Auto) (0.000-0.0310) K/mm3 Neutrophils % (42-75.0) % Lymphocytes % (20-51) % Monocytes % (0.0-9) % Neutrophils # (1.3-6.0) K/mm3 Lymphocytes # (1.5-3.5) k/mm3 Monocytes # (0.0-1.0) k/mm3 Anion Gap (6.8-13.8) mmol/L BUN 32 H (6-23) mg/dL Creatinine 1.48 H (0.4-1.4) mg/dL Est GFR (Non-Af Amer) 50 L (60-130) mL/min Random Glucose 145 H (70-110) mg/dL Alkaline Phosphatase 41 L (50-170) U/L Albumin 2.8 L (3.4-5.0) gm/dl Lipase 3244 H (73-393) U/L - Exam Constitutional: Present: Alert, Oriented x3, Cooperative, Well developed, No distress - looks uncomfortable with pain but better than yesterday., Obese ENT Exam: Present: normal ENT inspection, hearing grossly normal Neck: Present: normal inspection. Absent: limited range of motion, lymphadenopathy (R), lymphadenopathy (L), thyromegaly Breasts: Present: Other - male Respiratory: Present: lungs clear, no respiratory distress Cardiovascular/Chest: Present: normal peripheral pulses, regular rate, rhythm, no edema, no JVD, no murmur Abdomen: Present: Normal bowel sounds, soft, no rebound tenderness, no hepatospenomegaly, no masses, obese, tender /Rectal: Present: Exam deferred Extremity: Present: normal inspection, normal capillary refill Skin Exam: Present: normal color, warm/dry, no cyanosis Lymphatic: Present: no adenopathy Neurologic: Present: normal mood/affect Appearance: Present: appropriate appearance, appropriate insight, neat Eye contact: Present: cooperative, good eye contact, normal speech Thoughts: Present: normal thought pattern Assessment/Plan - Problems/Diagnosis (1) Acute pancreatitis Problem: Acute Narrative: Improving. We will follow labs and start clear liquids. The hiccoughs are gone, so we will stop chlorpromazine to minimize medications. We will D/C telemetry. We will continue to use medicine for pain and nausea. Depending on progress, he may be able to go home tomorrow or the next day. (2) Chronic recurrent pancreatitis Problem: Chronic (3) Adult BMI 35.0-35.9 kg/sq m Problem: Chronic (4) Benign essential hypertension Problem: Chronic Narrative: BP fairly well controlled for a man over the age of 61. (5) Chronic rhinitis Problem: Chronic
[2020-08-18] MEDS: ENOXAPARIN SODIUM 40 MG/0.4 ML SYRG SC SCH (09:17)
[2020-08-18] MEDS: FLUTICASONE PROPIONATE 120 SPRAY INHALER NS SCH (09:18)
[2020-08-18] MEDS: LISINOPRIL 10 MG TABLET PO SCH (09:18)
[2020-08-18] MEDS ORDERED: ACETAMINOPHEN 325 MG TABLET PO PRN (10:57)
[2020-08-18 11:49] LABS: Hematocrit 43.4 % (42.0-52.0); Hemoglobin 13.9 gm/dL (13.5-18.0); Mean Platelet Volume 9.6 fl (8-11.3); Platelet Count 208 K/mm3 (150-450); Red Blood Count 4.34 M/mm3 (4.7-6.0); Red Cell Distribution Width 13.2 % (11.5-14.0); White Blood Count 19.9 K/mm3 (4.0-10.5)
[2020-08-18 11:51] LABS: Total Cells Counted 100
[2020-08-18 12:05] LABS: Band 5 % (0-2.0); Lymphocyte 11 % (20-51); Monocyte 8 % (0-9); Neutrophil 76 % (42-75); Neutrophil # 15.1 K/mm3 (1.3-6.0); Platelet Estimate Normal (NORMAL); RBC Morphology Normal (NORMAL)
[2020-08-18] MEDS: FAMOTIDINE 20 MG TABLET PO SCH ×2 (15:11→20:22)
[2020-08-19] MEDS: HYDROmorphone HCL 1 MG/ML DISP.SYRIN IV PRN ×2 (02:18→08:06)
[2020-08-19 06:30] LABS: Hematocrit 37.3 % (42.0-52.0); Hemoglobin 11.9 gm/dL (13.5-18.0); Mean Cell Volume 100.3 fl (78-100); Mean Corpuscular Hgb Conc 31.9 g/dl (32-36); Mean Platelet Volume 9.9 fl (8-11.3); Neutrophil # 11.7 K/mm3 (1.3-6.0); Neutrophil % 82.3 % (42-75.0); Platelet Count 190 K/mm3 (150-450); Red Blood Count 3.72 M/mm3 (4.7-6.0); Red Cell Distribution Width 12.8 % (11.5-14.0); White Blood Count 14.2 K/mm3 (4.0-10.5)
[2020-08-19 06:44] LABS: Albumin * 2.5 gm/dl (3.4-5.0); BUN/Creatinine Ratio 16.9 (9.0-21.6); Bilirubin, Total 0.6 mg/dL (0.0-1.1); Ca. Corrected For Albumin 8.8 mg/dL (8.4-10.2); Calcium * 7.9 mg/dL (7.9-10.9); Carbon Dioxide 22.9 mmol/L (24-32.6); Potassium 3.9 mmol/L (3.4-4.6); Total Protein 6.2 gm/dL (6.2-8.2)
[2020-08-19] MEDS: ENOXAPARIN SODIUM 40 MG/0.4 ML SYRG SC SCH (08:27)
[2020-08-19] MEDS: LISINOPRIL 10 MG TABLET PO SCH (08:28)
[2020-08-19] MEDS: FLUTICASONE PROPIONATE 120 SPRAY INHALER NS SCH (08:29)
[2020-08-19] MEDS: FAMOTIDINE 20 MG TABLET PO SCH (08:30)
[2020-08-19] MEDS ORDERED: ONDANSETRON 8 MG TAB.RAPDIS PO PRN (09:41)
[2020-08-19] MEDS ORDERED: HYDROcodone/ACETAMINOPHEN 1 EACH TABLET PO PRN (09:41)
--- NOTE | 2020-08-19 09:57 | DS ---
(1) Acute pancreatitis Problem: Acute (2) Chronic recurrent pancreatitis Problem: Chronic (3) Adult BMI 35.0-35.9 kg/sq m Problem: Chronic (4) Benign essential hypertension Problem: Chronic (5) Chronic rhinitis Problem: Chronic Date of Discharge:: 08/19/20 Hospital Course: Patient presented the night of admission for severe upper abdominal pain. Pain has steadily improved. He is no longer nauseated. He is taking clear liquids without problem. He looks much more comfortable this moring. It is less severe this morning. Pain still epigastric and across upper abdomen. Now his entire back hurts which is musculoskeletal due to time in his chair and his bed. Pain medication works well. We are switching to oral pain and nausea meds this morning. Nausea improved, but not gone. Walking well. Urinating well. No bowel movement.wbc count has decreased today. Chemistries and lipase from this morning are still pending at the time of this initial dictation. BP has been a little high, but not terribly so. The plan is to continue to monitor it as an outpatient. His heartburn is gone. We will treat it as needed only as an outpa tient. Additional note a little after mid day: he seems to be doing well clinically. his lipase is down substantially. I think we can send home today with office followup. Procedures Performed: none Results and Findings: Lab Pending Results 08/16/20 17:31: WBC 19.8 H, RBC 4.97, Hgb 15.7, Hct 48.3, MCV 97.2, MCH 31.6 H, MCHC 32.5, RDW 12.3, Plt Count 299, MPV 9.3, Neutrophils % (Manual) 70, Band Neuts % (Manual) 5 H, Lymphocytes % (Manual) 6 L, Monocytes % (Manual) 11 H, Eosinophils % (Manual) 3, Basophils % (Manual) 0, Neutrophils # (Manual) 13.9 H, Lymphocytes # (Manual) 1.2 L, Monocytes # (Manual) 2.2 H, Eosinophils # (Manual) 0.4, Basophils # (Manual) 0.2 H, Atypic/Reactive Lymphs 5 H, Platelet Estimate Normal, RBC Morphology Normal 08/16/20 17:31: Sodium 139, Plasma Sodium 139, Potassium 4.0, Chloride 101, Carbon Dioxide 24.7, Anion Gap 17.3 H, BUN 24 H, Creatinine 1.38, Est GFR (Non- Af Amer) 54 L D, BUN/Creatinine Ratio 17.4, Random Glucose 130 H, Calcium 10.5, Calcium Adj for Albumin 10.2, Total Bilirubin 0.4, AST 28, ALT 35, Alkaline Phosphatase 54, Lactate Dehydrogenase 173, Troponin I 0.075, Total Protein 7.8, Albumin 4.0, Lipase 17331 H 08/16/20 18:40: Amylase 4430 H 08/16/20 : Urine Color Yellow, Urine Appearance Clear, Urine pH 5.5, Ur Specific [place] 1.020, Urine Protein Negative, Urine Glucose (UA) Negative, Urine Ketones Negative, Urine Blood Negative, Urine Nitrate Negative, Urine Bilirubin Negative, Urine Urobilinogen Normal, Ur Leukocyte Esterase Negative, Urine RBC None seen, Urine WBC None seen, Ur Epithelial Cells None seen, Urine Bacteria None seen, Urine Culture Comments No culture indicated 08/17/20 08:36: WBC 18.4 H, RBC 5.11, Hgb 16.4, Hct 49.0, MCV 95.9, MCH 32.1 H, MCHC 33.5, RDW 12.3, Plt Count 284, MPV 9.1, Immature Gran % (Auto) 0.50 H, Immature Gran # (Auto) 0.09 H, Neutrophils % 88.5 H, Lymphocytes % 3.3 L, Monocytes % 7.5, Eosinophils % 0.0, Basophils % 0.2, Nucleated RBC % 0.0, Neutrophils # 16.3 H, Lymphocytes # 0.61 L, Monocytes # 1.4 H, Eosinophils # 0.0, Absolute Basophils 0.0 08/17/20 08:36: Sodium 138, Plasma Sodium 139, Potassium 4.5, Chloride 104, Carbon Dioxide 24.4, Anion Gap 14.1 H, BUN 25 H, Creatinine 1.27, Est GFR (Non- Af Amer) 60, BUN/Creatinine Ratio 19.7, Random Glucose 165 H, Calcium 8.7, Calcium Adj for Albumin 8.9, Total Bilirubin 0.5, AST 22, ALT 28, Alkaline Phosphatase 55, Total Protein 7.3, Albumin 3.4, Lipase 6185 H 08/18/20 06:31: WBC 20.0 H, RBC 4.34 L, Hgb 13.7, Hct 43.0, MCV 99.1, MCH 31.6 H, MCHC 31.9 L, RDW 13.1, Plt Count 214, MPV 9.7, Immature Gran % (Auto) 1.40 H, Immature Gran # (Auto) 0.28 H, Neutrophils % 85.0 H, Neutrophils % (Manual) 81 H, Lymphocytes % 4.2 L, Lymphocytes % (Manual) 5 L, Monocytes % 9.1 H, Monocytes % (Manual) 14 H, Eosinophils % 0.0, Basophils % 0.3, Nucleated RBC % 0.0, Neutrophils # 17.0 H, Neutrophils # (Manual) 16.2 H, Lymphocytes # 0.83 L, Lymphocytes # (Manual) 1.0 L, Monocytes # 1.8 H, Monocytes # (Manual) 2.8 H, E osinophils # 0.0, Absolute Basophils 0.1, Platelet Estimate Normal, RBC Morphology Normal 08/18/20 06:31: Sodium 139, Plasma Sodium 140, Potassium 4.5, Chloride 105, Carbon Dioxide 25.4, Anion Gap 13.1, BUN 32 H, Creatinine 1.48 H, Est GFR (Non- Af Amer) 50 L, BUN/Creatinine Ratio 21.6, Random Glucose 145 H, Calcium 8.2, Calcium Adj for Albumin 8.8, Total Bilirubin 0.5, AST 23, ALT 20, Alkaline Phosphatase 41 L, Total Protein 6.4, Albumin 2.8 L, Lipase 3244 H 08/18/20 11:42: WBC 19.9 H, RBC 4.34 L, Hgb 13.9, Hct 43.4, MCV 100.0, MCH 32.0 H, MCHC 32.0, RDW 13.2, Plt Count 208, MPV 9.6, Neutrophils % (Manual) 76 H, Band Neuts % (Manual) 5 H, Lymphocytes % (Manual) 11 L, Monocytes % (Manual) 8, Neutrophils # (Manual) 15.1 H, Lymphocytes # (Manual) 2.2, Monocytes # (Manual) 1.6 H, Platelet Estimate Normal, RBC Morphology Normal 08/19/20 06:26: WBC 14.2 H D, RBC 3.72 L, Hgb 11.9 L, Hct 37.3 L, MCV 100.3 H, MCH 32.0 H, MCHC 31.9 L, RDW 12.8, Plt Count 190, MPV 9.9, Immature Gran % (Auto) 2.20 H, Immature Gran # (Auto) 0.32 H, Neutrophils % 82.3 H, Lymphocytes % 6.5 L, Monocytes % 8.5, Eosinophils % 0.2, Basophils % 0.3, Nucleated RBC % 0.0, Neutrophils # 11.7 H, Lymphocytes # 0.92 L, Monocytes # 1.2 H, Eosinophils # 0.0, Absolute Basophils 0.0 Discharge Location: Home Disposition: Home self-care Condition: Good Discharge Activity: Activity as tolerated Discharge Diet: Low fat/chol Referrals: Lowell Rahman MD [Primary Care Provider] - Additional Patient Instructions (free text): CBC, CMP and lipase as an outpatient tomorrow morning. Follow up with Dr. Kent in the office in one week. Call as needed for problems or questions. Prescriptions (Any new or edited meds): HYDROcodone/ACETAMINOPHEN [Hydrocodon-Acetaminophen 5-325] 1 ea PO Q4H PRN #30 tab PRN Reason: pain unrelieved with tylenol Transmission Status: Received by [facility] Ondansetron [Zofran Odt] 8 mg PO Q6H PRN #30 tab.rapdis PRN Reason: nausea or vomiting. Transmission Status: Received by [facility] Complete Home Medications List: Complete Home Medication List: Aspirin [Aspirin Enteric Coated] 325 mg PO DAILY 06/15/17 magnesium 200 mg tablet 200 mg PO BID 03/12/19 potassium 99 mg tablet 297 mg PO DAILY tab 03/12/19 saw palmetto 500 mg capsule 1,000 mg PO TID cap 03/12/19 lisinopril 20 mg tablet 20 mg PO DAILY #30 tab 07/08/20 fluticasone propionate 50 mcg/actuation nasal spray,suspension 2 spray INTRANASAL DAILY #15.8 g 08/12/20 HYDROcodone/ACETAMINOPHEN [Hydrocodon-Acetaminophen 5-325] 1 ea PO Q4H PRN #30 tab 08/19/20 Ondansetron [Zofran Odt] 8 mg PO Q6H PRN #30 tab.rapdis 08/19/20 Amb Orders for Discharge: CBC Time Frame: 1 Day, Facility: [facility], Location: Laboratory Comprehensive Metabolic Panel Time Frame: 1 Day, Facility: [facility], Location: Laboratory Lipase Time Frame: 1 Day, Facility: [facility], Location: Laboratory
[2020-08-19 14:43] VITALS: BP 184/85
== END 2020-08-19 13:45 | disposition home or self-care (01) | DRG 440 ==
LOC: ER 16:41 → MS 23:03
PROVIDERS: ADMIT Internal Medicine; ATTEND Allergy & Immunology
DX: J31.0 Chronic rhinitis; I10 Essential (primary) hypertension; Z68.35 Body mass index [BMI] 35.0-35.9, adult; E66.9 Obesity, unspecified; K85.90 Acute pancreatitis without necrosis or infection, unspecified; K86.1 Other chronic pancreatitis